=== PATIENT | female | born 1955 | race African-American/Black ===

== ENCOUNTER 2019-03-13 17:19 | Emergency (ER) | payer MEDICAID ==
[~2019-03-13] VITALS: Ht 172.7 cm; Wt 83.0 kg
[2019-03-13 18:22] LABS: BASOPHILS % 0.7 % (0.0-2.0); EOSINOPHILS % 0.7 % (0.0-5.0); HEMATOCRIT. 44.4 % (36.0-48.0); HEMOGLOBIN. 14.7 g/dL (12.0-16.0); LYMPHOCYTES % 54.6 % (20.0-50.0); MEAN CORPUSCULAR HEMOGLOBIN 26.9 pg (28.0-32.0); MEAN CORPUSCULAR VOLUME 81.2 fL (81.0-99.0); MEAN PLATELET VOLUME 11.8 fl (7.4-10.4); MONOCYTES % 8.3 % (2.0-8.0); NEUTROPHILS % 35.7 % (40.0-76.0); PLATELET 227 x1000/uL (130-400); RED BLOOD CELL COUNT 5.47 mill/uL (4.2-5.4); RED CELL DISTRIBUTION WIDTH 14.2 % (11.6-14.6)
[2019-03-13 18:26] LABS: CHLORIDE 109 mEq/L (98-107)
[2019-03-13] MEDS: IBUPROFEN 600MG TABLET PO ONE (19:50)
[2019-03-13] MEDS: TRAMADOL 50MG TABLET PO ONE (19:50)
[2019-03-13 20:31] LABS: *AMPHETAMINES SCREEN URINE NEGATIVE (NEGATIVE); *BARBITURATES SCREEN URINE NEGATIVE (NEGATIVE); *BENZODIAZEPINES SCREEN URINE PRESUMTIVE POSITIVE (NEGATIVE); *COCAINE SCREEN URINE NEGATIVE (NEGATIVE); METHADONE URINE SCREEN NEGATIVE (NEGATIVE); OPIATES URINE SCREEN PRESUMTIVE POSITIVE (NEGATIVE)
[2019-03-13 20:32] LABS: CANNABINOID URINE SCREEN NEGATIVE (NEGATIVE); PHENCYCLIDINE URINE SCREEN NEGATIVE (NEGATIVE)
[2019-03-14 00:01] VITALS: BP 135/86
== END 2019-03-14 00:01 | disposition home or self-care (01) ==
LOC: ER 17:19 → CANBEDREQ 03-14 00:07
DX: R07.89 Other chest pain (principal); R06.02 Shortness of breath; R42 Dizziness and giddiness; I11.0 Hypertensive heart disease with heart failure; I50.9 Heart failure, unspecified; E11.9 Type 2 diabetes mellitus without complications; Z88.0 Allergy status to penicillin
CPT/HCPCS: 36415; 71045; 80305; 83880; 84484; 99284

== ENCOUNTER 2019-03-14 15:11 | Emergency (ER) | payer MEDICAID ==
[~2019-03-14] VITALS: Ht 170.2 cm; Wt 70.0 kg
[2019-03-14] MEDS ORDERED: SODIUM CHLORIDE 0.9% 1,000 ML IV ONE (16:40)
[2019-03-14] MEDS ORDERED: ACETAMINOPHEN 650MG/20.3ML UDC PO ONE (16:45)
[2019-03-14] MEDS ORDERED: METOCLOPRAMIDE HCL 10MG/2ML VIAL IV ONE (16:45)
[2019-03-14] MEDS ORDERED: FAMOTIDINE 20MG/2ML VIAL IV ONE (16:45)
[2019-03-14 17:23] LABS: CHLORIDE 106 mEq/L (98-107)
[2019-03-14 17:25] LABS: BASOPHILS % 1.3 % (0.0-2.0); EOSINOPHILS % 0.1 % (0.0-5.0); HEMATOCRIT. 47.9 % (36.0-48.0); MEAN CORPUSCULAR HEMOGLOBIN 26.8 pg (28.0-32.0); MEAN CORPUSCULAR VOLUME 80.4 fL (81.0-99.0); MEAN PLATELET VOLUME 11.6 fl (7.4-10.4); MONOCYTES % 7.6 % (2.0-8.0); PLATELET 215 x1000/uL (130-400); RED BLOOD CELL COUNT 5.96 mill/uL (4.2-5.4); RED CELL DISTRIBUTION WIDTH 14.2 % (11.6-14.6)
[2019-03-14 17:38] LABS: INR 1.1; PROTHROMBIN TIME 10.8 sec (9.6-11.0)
[2019-03-15 01:15] VITALS: BP 166/85
== END 2019-03-15 01:00 | disposition home or self-care (01) ==
LOC: ER 15:11
DX: K52.9 Noninfective gastroenteritis and colitis, unspecified (principal); I11.0 Hypertensive heart disease with heart failure; I50.9 Heart failure, unspecified
CPT/HCPCS: 36415; 74176; 80053; 83690; 85025; 85610; 93005; 96361; 96374; 96375; 99284; J2765; J3490; J7030

== ENCOUNTER 2019-03-15 23:45 | Emergency (ER) | payer MEDICAID ==
[~2019-03-15] VITALS: Ht 170.2 cm; Wt 91.0 kg
[2019-03-16] MEDS ORDERED: ACETAMINOPHEN 500MG TABLET PO ONE (05:30)
[2019-03-16 13:24] VITALS: BP 105/74
== END 2019-03-16 15:18 | disposition home or self-care (01) ==
LOC: ER 23:45
DX: Z59.8 Other problems related to housing and economic circumstances (principal); E11.9 Type 2 diabetes mellitus without complications; F20.9 Schizophrenia, unspecified; I11.0 Hypertensive heart disease with heart failure; I50.9 Heart failure, unspecified; F31.9 Bipolar disorder, unspecified; H54.7 Unspecified visual loss; J45.909 Unspecified asthma, uncomplicated; Z88.0 Allergy status to penicillin
CPT/HCPCS: 99283